=== PATIENT | female | born 1960 | race Caucasian/White ===

== ENCOUNTER 2017-04-23 05:40 | Inpatient (IN) ==
[2017-04-16 09:56] LABS: Basophils % 0.2 % (0.0-0.8); Eosinophils # 0.1 10*3/uL (0.0-0.87); Eosinophils % 1.6 % (0.00-10.9); Hematocrit 38.6 VOL% (35.7-47.0); Hemoglobin 13.1 GM/DL (12.0-16.0); Immature Granulocytes % 0.3 %; Immature Granulocytes Absolute 0.02 #; Lymphocytes # 3.7 10*3/uL (1.4-4.0); Lymphocytes % 60.5 % (21.3-54.2); Mean Corpuscular HGB Conc 33.9 GM/DL (32-36); Mean Corpuscular Hemoglobin 29 PG (27-34); Mean Corpuscular Volume 86.7 FL (87-102); Mean Platelet Volume 10.3 FL (9.6-12.0); Monocytes # 0.4 10*3/uL (0.11-0.8); Monocytes % 6.4 % (1.7-12.7); Neutrophils # 1.9 10*3/uL (1.4-7.4); Platelet Count 303 T/CUMM (130-400); Red Blood Count 4.45 MC/CUMM (3.8-5.5); Red Cell Distribution Width 13.2 % (9.3-17.3); White Blood Count 6.1 T/CUMM (4-12)
[2017-04-16 10:29] LABS: Calcium 8.5 MG/DL (8.5-10.1); Osmolality,Calculated 264.4 MOS/KG (273-304); Potassium 4.3 MMOL/L (3.5-5.1)
[2017-04-16 10:48] LABS: Eosinophils 4 % (0-10); Giant Platelets Few; Hypochromasia 1+; Lymphocytes 67 % (20-55); Ovalocytes Slight; Platelet Estimate Adequate; Segmented Neutrophils 19 % (50-85); Total Cells Counted 100
[2017-04-16 10:49] LABS: Atypical Lymphocytes Few; Microcytosis Slight
[2017-04-23] MEDS ORDERED: ceFAZolin 1,000 MG in SYRINGE 1 EACH IV ONE (06:00)
[2017-04-23] MEDS ORDERED: DIAZEPAM 5 MG TABLET PO ONE (07:16)
[2017-04-23] MEDS ORDERED: PANTOPRAZOLE 40 MG TABLET PO ONE (07:16)
[2017-04-23] MEDS ORDERED: ceFAZolin 1,000 MG VIAL ONE (07:18)
[2017-04-23] MEDS ORDERED: LACTATED RINGERS 1,000 ML IV SCH (07:30)
[2017-04-23] MEDS ORDERED: TISSUE ADHESIVE 1 EACH APPLICATOR TOP ONE (07:57)
[2017-04-23] MEDS ORDERED: BUPIVACAINE 0.25% 50 ML VIAL ONE (07:57)
[2017-04-23] MEDS ORDERED: ONDANSETRON 4 MG/2 ML VIAL IV PRN ×2 (10:01→11:08)
[2017-04-23] MEDS: HYDROmorphone 2 MG/1 ML VIAL IV PRN ×2 (10:05→10:10)
[2017-04-23] MEDS ORDERED: PROPOFOL 200 MG/20 ML VIAL IV ONE (10:19)
[2017-04-23] MEDS ORDERED: SEVOFLURANE 1 UNIT/15 MINUTE INH ONE (10:19)
[2017-04-23] MEDS ORDERED: NEOSTIGMINE 10 MG/10 ML VIAL ONE (10:20)
[2017-04-23] MEDS ORDERED: MIDAZOLAM 2 MG/2 ML VIAL ONE (10:20)
[2017-04-23] MEDS ORDERED: GLYCOPYRROLATE 0.4 MG/2 ML VIAL ONE ×2 (10:20)
[2017-04-23] MEDS ORDERED: ONDANSETRON 4 MG/2 ML VIAL ONE (10:20)
[2017-04-23] MEDS ORDERED: KETOROLAC 30 MG/1 ML VIAL ONE (10:20)
[2017-04-23] MEDS ORDERED: fentaNYL 100 MCG/2 ML VIAL ONE (10:20)
[2017-04-23] MEDS ORDERED: ACETAMINOPHEN 1,000 MG/100 ML VIAL IV ONE (10:20)
[2017-04-23] MEDS ORDERED: ROCURONIUM 100 MG/10 ML VIAL IV ONE (10:21)
[2017-04-23] MEDS ORDERED: MORPHINE 2 MG/1 ML SYRINGE IV PRN (11:08)
[2017-04-23] MEDS ORDERED: NON-FORMULARY MEDICATION (Melatonin [Melatonin] 10 MG) PO PRN (11:08)
[2017-04-23] MEDS ORDERED: DEXTROSE 50% 25 GM/50 ML VIAL IV PRN (11:08)
[2017-04-23] MEDS ORDERED: GLUCAGON 1 MG VIAL IM PRN (11:08)
[2017-04-23] MEDS: INSULIN REGULAR 100 UNIT/ML SUBCUT SCH ×3 (11:58→21:18)
[2017-04-23] MEDS: SODIUM CHLORIDE 0.9% 1,000 ML IV SCH ×2 (15:03→20:57)
[2017-04-23] MEDS ORDERED: SODIUM CHLORIDE 0.9% 500 ML IV ONE (15:55)
[2017-04-23] MEDS: KETOROLAC 15 MG/1 ML VIAL IV PRN (16:07)
[2017-04-23] MEDS: PREGABALIN 75 MG CAPSULE PO SCH (21:18)
[2017-04-23] MEDS: rOPINIRole 1 MG TABLET PO SCH (21:19)
[2017-04-24] MEDS: KETOROLAC 15 MG/1 ML VIAL IV PRN ×3 (00:53→17:00)
[2017-04-24] MEDS: SODIUM CHLORIDE 0.9% 1,000 ML IV SCH ×2 (05:33→15:01)
[2017-04-24] MEDS: ENOXAPARIN 40 MG/0.4 ML SYRINGE SUBCUT SCH (05:34)
[2017-04-24] MEDS ORDERED: LACTATED RINGERS 500 ML IV ONE (05:56)
[2017-04-24 06:35] LABS: Basophils % 0.2 % (0.0-0.8); Eosinophils # 0.2 10*3/uL (0.0-0.87); Eosinophils % 2.4 % (0.00-10.9); Hematocrit 30.1 VOL% (35.7-47.0); Hemoglobin 10.4 GM/DL (12.0-16.0); Immature Granulocytes % 0.2 %; Immature Granulocytes Absolute 0.01 #; Lymphocytes # 3.1 10*3/uL (1.4-4.0); Lymphocytes % 46.4 % (21.3-54.2); Mean Corpuscular HGB Conc 34.6 GM/DL (32-36); Mean Corpuscular Hemoglobin 30 PG (27-34); Mean Corpuscular Volume 87.8 FL (87-102); Mean Platelet Volume 10.7 FL (9.6-12.0); Monocytes # 0.6 10*3/uL (0.11-0.8); Monocytes % 9.2 % (1.7-12.7); Neutrophils # 2.8 10*3/uL (1.4-7.4); Neutrophils % 41.6 % (38.7-73.9); Platelet Count 251 T/CUMM (130-400); Red Blood Count 3.43 MC/CUMM (3.8-5.5); Red Cell Distribution Width 13.7 % (9.3-17.3); White Blood Count 6.6 T/CUMM (4-12)
[2017-04-24 06:53] LABS: Calcium 7.4 MG/DL (8.5-10.1); Osmolality,Calculated 271.4 MOS/KG (273-304); Potassium 3.6 MMOL/L (3.5-5.1)
[2017-04-24] MEDS: INSULIN REGULAR 100 UNIT/ML SUBCUT SCH ×4 (07:39→21:23)
[2017-04-24] MEDS: DULoxetine 30 MG CAPSULE PO SCH (08:33)
[2017-04-24] MEDS: PREGABALIN 75 MG CAPSULE PO SCH ×2 (08:33→21:27)
[2017-04-24] MEDS: PANTOPRAZOLE 40 MG TABLET PO SCH (08:33)
[2017-04-24] MEDS: ASPIRIN EC 81 MG TABLET PO SCH (08:33)
[2017-04-24] MEDS: rOPINIRole 1 MG TABLET PO SCH (21:27)
[2017-04-25] MEDS: ENOXAPARIN 40 MG/0.4 ML SYRINGE SUBCUT SCH (04:25)
[2017-04-25 06:14] LABS: Basophils % 0.2 % (0.0-0.8); Eosinophils # 0.1 10*3/uL (0.0-0.87); Eosinophils % 2.1 % (0.00-10.9); Hematocrit 30.1 VOL% (35.7-47.0); Hemoglobin 10.2 GM/DL (12.0-16.0); Immature Granulocytes % 0.2 %; Immature Granulocytes Absolute 0.01 #; Lymphocytes # 2.3 10*3/uL (1.4-4.0); Lymphocytes % 44.6 % (21.3-54.2); Mean Corpuscular HGB Conc 33.9 GM/DL (32-36); Mean Corpuscular Hemoglobin 30 PG (27-34); Mean Corpuscular Volume 89.9 FL (87-102); Mean Platelet Volume 10.7 FL (9.6-12.0); Monocytes # 0.6 10*3/uL (0.11-0.8); Monocytes % 11.9 % (1.7-12.7); Neutrophils # 2.1 10*3/uL (1.4-7.4); Platelet Count 231 T/CUMM (130-400); Red Blood Count 3.35 MC/CUMM (3.8-5.5); Red Cell Distribution Width 13.9 % (9.3-17.3); White Blood Count 5.1 T/CUMM (4-12)
[2017-04-25 06:46] LABS: Calcium 7.7 MG/DL (8.5-10.1); Osmolality,Calculated 287.8 MOS/KG (273-304)
[2017-04-25 07:39] VITALS: BP 118/73
[2017-04-25] MEDS: PREGABALIN 75 MG CAPSULE PO SCH (08:46)
[2017-04-25] MEDS: DULoxetine 30 MG CAPSULE PO SCH (08:46)
[2017-04-25] MEDS: INSULIN REGULAR 100 UNIT/ML SUBCUT SCH (08:46)
[2017-04-25] MEDS: ASPIRIN EC 81 MG TABLET PO SCH (08:46)
[2017-04-25] MEDS: PANTOPRAZOLE 40 MG TABLET PO SCH (08:46)
== END 2017-04-25 11:05 | disposition home or self-care (01) | DRG 41 ==
LOC: N.OR 05:40 → N.SDSINP 05:43 → N.3E 09:53
PROVIDERS: ADMIT Surgery; ATTEND Surgery

== ENCOUNTER 2020-07-11 13:54 | Inpatient (IN) ==
[2020-07-11] MEDS ORDERED: SODIUM CHLORIDE 0.9% 1,000 ML IV STA ×2 (14:48→15:44)
[2020-07-11 15:03] LABS: Basophils % 0.1 % (0.0-0.8); Eosinophils % 0.4 % (0.00-10.9); Hematocrit 31.9 VOL% (35.7-47.0); Immature Granulocytes % 0.8 %; Immature Granulocytes Absolute 0.08 #; Lymphocytes # 2.2 10*3/uL (1.4-4.0); Mean Corpuscular HGB Conc 31.3 GM/DL (32-36); Mean Corpuscular Volume 85.1 FL (87-102); Mean Platelet Volume 8.7 FL (9.6-12.0); Monocytes % 7.8 % (1.7-12.7); Neutrophils % 69.9 % (38.7-73.9); Platelet Count 592 T/CUMM (130-400); Red Blood Count 3.75 MC/CUMM (3.8-5.5); Red Cell Distribution Width 22.4 % (9.3-17.3); White Blood Count 10.5 T/CUMM (4-12)
[2020-07-11 15:24] LABS: Alanine Aminotransferase < 6 U/L (13-56); Albumin 2.6 G/DL (3.4-5.0); Alkaline Phosphatase 106 U/L (45-117); Aspartate Amino Transferase 12 U/L (0-37); Blood Urea Nitrogen 16 MG/DL (7-18); Calcium 9.1 MG/DL (8.5-10.1); Carbon Dioxide 29 MMOL/L (21-32); Estimated Glom Filtration Rate 25 ML/MIN; Glucose 308 MG/DL (74-106); Osmolality,Calculated 261.6 MOS/KG (273-304); Potassium 3.6 MMOL/L (3.5-5.1); Sodium 124 MMOL/L (136-145); Total Protein 8.8 G/DL (6.4-8.2)
[2020-07-11] MEDS ORDERED: PROMETHAZINE 25 MG/1 ML VIAL IM STA (15:46)
[2020-07-11] MEDS ORDERED: GLUCAGON 1 MG VIAL IM PRN (17:13)
[2020-07-11] MEDS ORDERED: MORPHINE 4 MG/1 ML VIAL IV PRN (17:13)
[2020-07-11] MEDS ORDERED: PROMETHAZINE 25 MG/1 ML VIAL IM PRN (17:13)
[2020-07-11] MEDS ORDERED: ACETAMINOPHEN 325 MG TABLET PO PRN (17:13)
[2020-07-11] MEDS ORDERED: DEXTROSE 50% 25 GM/50 ML VIAL IV PRN (17:13)
[2020-07-11] MEDS: SODIUM CHLORIDE 0.9% 1,000 ML IV SCH (18:30)
[2020-07-11] MEDS: ENOXAPARIN 40 MG/0.4 ML SYRINGE SUBCUT SCH (21:22)
[2020-07-11] MEDS: VENLAFAXINE XR 75 MG CAPSULE PO SCH (21:22)
[2020-07-11] MEDS: TEMAZEPAM 7.5 MG CAPSULE PO SCH (21:22)
[2020-07-11] MEDS: DIVALPROEX 250 MG TABLET PO SCH (21:22)
[2020-07-11] MEDS: SIMVASTATIN 40 MG TABLET PO SCH (21:22)
[2020-07-11] MEDS: INSULIN REGULAR 100 UNIT/ML SUBCUT SCH (21:23)
[2020-07-11 22:39] LABS: Bacteria,Urine Many /HPF (Few); Bilirubin,Urine Negative (Negative); Blood, Urine Moderate mg/dL (Negative); Glucose,Urine (UA) >=500 mg/dL (Negative); Ketones,Urine 20 mg/dL (Negative); Mucus,Urine Occasional /LPF (Occasional); Nitrite,Urine Negative (Negative); Protein,Urine 30 MG/DL; RBC,Urine 12 /HPF (0-4); Squamous Epithelial Cell,Urine Occasional /HPF (0-10); Urine Appearance Slightly Hazy (Clear); Urine Color Yellow (Yellow); Urine Specific Gravity 1.003 (1.001-1.035); Urine Urobilinogen < 2.0 EU/DL (0.2-1.0); WBC,Urine 155 /HPF (0-6)
[2020-07-12] MEDS: SODIUM CHLORIDE 0.9% 1,000 ML IV SCH ×4 (00:48→22:05)
[2020-07-12 05:18] LABS: Basophils % 0.1 % (0.0-0.8); Eosinophils # 0.1 10*3/uL (0.0-0.87); Eosinophils % 0.6 % (0.00-10.9); Hematocrit 26.8 VOL% (35.7-47.0); Hemoglobin 8.5 GM/DL (12.0-16.0); Immature Granulocytes % 0.6 %; Immature Granulocytes Absolute 0.05 #; Lymphocytes # 1.2 10*3/uL (1.4-4.0); Lymphocytes % 13.9 % (21.3-54.2); Mean Corpuscular HGB Conc 31.7 GM/DL (32-36); Mean Corpuscular Volume 85.4 FL (87-102); Mean Platelet Volume 8.8 FL (9.6-12.0); Monocytes % 7.4 % (1.7-12.7); Neutrophils % 77.4 % (38.7-73.9); Platelet Count 481 T/CUMM (130-400); Red Blood Count 3.14 MC/CUMM (3.8-5.5); Red Cell Distribution Width 22.2 % (9.3-17.3); White Blood Count 8.5 T/CUMM (4-12)
[2020-07-12 05:35] LABS: Alanine Aminotransferase < 6 U/L (13-56); Albumin 2.1 G/DL (3.4-5.0); Alkaline Phosphatase 81 U/L (45-117); Aspartate Amino Transferase 10 U/L (0-37); Blood Urea Nitrogen 12 MG/DL (7-18); Carbon Dioxide 26 MMOL/L (21-32); Estimated Glom Filtration Rate 39 ML/MIN; HDL Cholesterol 55 MG/DL (40-60); Osmolality,Calculated 268.8 MOS/KG (273-304); Risk Ratio 2.18; Sodium 137 MMOL/L (136-145); Total Protein 7.1 G/DL (6.4-8.2); Triglycerides 134 MG/DL (2-150); VLDL CHOLESTEROL 26.8 MG/DL
[2020-07-12 05:39] LABS: Hypochromasia 1+; Microcytosis 1+; Platelet Estimate Adequate
[2020-07-12 05:42] LABS: Glucose 26 MG/DL (74-106)
[2020-07-12] MEDS ORDERED: LEVOTHYROXINE 75 MCG TABLET PO SCH (06:00)
[2020-07-12] MEDS ORDERED: VENLAFAXINE XR 75 MG CAPSULE PO SCH (08:00)
[2020-07-12] MEDS: INSULIN REGULAR 100 UNIT/ML SUBCUT SCH (08:39)
[2020-07-12] MEDS: ASPIRIN EC 81 MG TABLET PO SCH (08:40)
[2020-07-12] MEDS: PANTOPRAZOLE 40 MG TABLET PO SCH (08:40)
[2020-07-12] MEDS: MIDODRINE 2.5 MG TABLET PO SCH ×3 (08:40→17:32)
[2020-07-12] MEDS: DIVALPROEX 250 MG TABLET PO SCH ×2 (08:40→20:58)
[2020-07-12] MEDS: ONDANSETRON 4 MG/2 ML VIAL IV PRN ×3 (08:40→19:00)
[2020-07-12] MEDS: POTASSIUM CHLORIDE 20 MEQ TABLET PO PRN ×4 (08:40→15:22)
[2020-07-12] MEDS: VENLAFAXINE XR 75 MG CAPSULE PO SCH ×2 (08:47→20:57)
[2020-07-12] MEDS: LACTOBACILLUS ACIDOPHILUS/BULGARICUS CAPLET PO SCH ×2 (08:47→20:58)
[2020-07-12] MEDS ORDERED: PNEUMOCOCCAL VACCINE (23 VALENT) 0.5 ML VIAL IM ONE (09:00)
[2020-07-12] MEDS: INSULIN GLARGINE 100 UNIT/ML SUBCUT SCH (11:39)
[2020-07-12] MEDS: INSULIN LISPRO 100 UNIT/ML SUBCUT SCH ×3 (11:39→21:02)
[2020-07-12] MEDS: MENTHOL/ZINC OXIDE OINT 71 GM JAR TOP SCH ×2 (17:32→20:59)
[2020-07-12] MEDS: TEMAZEPAM 7.5 MG CAPSULE PO SCH (20:58)
[2020-07-12] MEDS: SIMVASTATIN 40 MG TABLET PO SCH (20:58)
[2020-07-12] MEDS: ENOXAPARIN 40 MG/0.4 ML SYRINGE SUBCUT SCH (20:58)
[2020-07-13] MEDS: SODIUM CHLORIDE 0.9% 1,000 ML IV SCH ×3 (04:56→17:03)
[2020-07-13] MEDS: ONDANSETRON 4 MG/2 ML VIAL IV PRN ×4 (04:56→20:20)
[2020-07-13 05:34] LABS: Basophils % 0.3 % (0.0-0.8); Eosinophils # 0.1 10*3/uL (0.0-0.87); Eosinophils % 1.3 % (0.00-10.9); Hematocrit 25.5 VOL% (35.7-47.0); Hemoglobin 7.9 GM/DL (12.0-16.0); Immature Granulocytes % 0.5 %; Immature Granulocytes Absolute 0.04 #; Lymphocytes # 1.9 10*3/uL (1.4-4.0); Lymphocytes % 23.8 % (21.3-54.2); Mean Corpuscular Volume 89.2 FL (87-102); Mean Platelet Volume 8.8 FL (9.6-12.0); Neutrophils % 65.1 % (38.7-73.9); Platelet Count 440 T/CUMM (130-400); Red Blood Count 2.86 MC/CUMM (3.8-5.5); Red Cell Distribution Width 22.5 % (9.3-17.3); White Blood Count 7.8 T/CUMM (4-12)
[2020-07-13] MEDS: LEVOTHYROXINE 88 MCG TABLET PO SCH (05:43)
[2020-07-13 05:59] LABS: Calcium 8.1 MG/DL (8.5-10.1); Osmolality,Calculated 280.8 MOS/KG (273-304); Potassium 4.3 MMOL/L (3.5-5.1)
[2020-07-13 06:03] LABS: Hypochromasia 2+; Microcytosis 1+; Platelet Estimate Adequate
[2020-07-13] MEDS: ASPIRIN EC 81 MG TABLET PO SCH (08:03)
[2020-07-13] MEDS: MIDODRINE 2.5 MG TABLET PO SCH ×3 (08:04→17:03)
[2020-07-13] MEDS: VENLAFAXINE XR 75 MG CAPSULE PO SCH ×2 (08:04→23:32)
[2020-07-13] MEDS: DIVALPROEX 250 MG TABLET PO SCH ×2 (08:04→23:33)
[2020-07-13] MEDS: LACTOBACILLUS ACIDOPHILUS/BULGARICUS CAPLET PO SCH ×2 (08:04→23:58)
[2020-07-13] MEDS: PANTOPRAZOLE 40 MG TABLET PO SCH (08:04)
[2020-07-13] MEDS: INSULIN LISPRO 100 UNIT/ML SUBCUT SCH ×4 (08:05→23:58)
[2020-07-13] MEDS: MENTHOL/ZINC OXIDE OINT 71 GM JAR TOP SCH ×2 (08:06→23:58)
[2020-07-13] MEDS: INSULIN GLARGINE 100 UNIT/ML SUBCUT SCH (08:06)
[2020-07-13] MEDS ORDERED: MAGNESIUM SULF RIDER 4 GM in PREMIX 1 EACH IV ONE (09:00)
[2020-07-13] MEDS ORDERED: SODIUM CHLORIDE 0.9% 1,000 ML IV PRN (13:51)
[2020-07-13] MEDS: MEGESTROL 40 MG TABLET PO SCH (17:03)
[2020-07-13] MEDS: SIMVASTATIN 40 MG TABLET PO SCH (23:33)
[2020-07-14] MEDS: SODIUM CHLORIDE 0.9% 1,000 ML IV SCH ×3 (05:07→17:53)
[2020-07-14 08:03] LABS: Basophils % 0.3 % (0.0-0.8); Eosinophils # 0.1 10*3/uL (0.0-0.87); Eosinophils % 1.5 % (0.00-10.9); Hematocrit 33.1 VOL% (35.7-47.0); Hemoglobin 11.2 GM/DL (12.0-16.0); Immature Granulocytes % 0.5 %; Immature Granulocytes Absolute 0.05 #; Lymphocytes # 1.8 10*3/uL (1.4-4.0); Lymphocytes % 18.7 % (21.3-54.2); Mean Corpuscular HGB Conc 33.8 GM/DL (32-36); Mean Corpuscular Volume 84.7 FL (87-102); Mean Platelet Volume 8.6 FL (9.6-12.0); Monocytes % 6.7 % (1.7-12.7); Neutrophils % 72.3 % (38.7-73.9); Platelet Count 416 T/CUMM (130-400); Red Blood Count 3.91 MC/CUMM (3.8-5.5); Red Cell Distribution Width 20.5 % (9.3-17.3); White Blood Count 9.6 T/CUMM (4-12)
[2020-07-14 08:34] LABS: Calcium 8.1 MG/DL (8.5-10.1); Osmolality,Calculated 274.2 MOS/KG (273-304); Potassium 4.3 MMOL/L (3.5-5.1)
[2020-07-14 08:35] LABS: % Iron Saturation 23.3 % (18-50)
[2020-07-14 08:36] LABS: Folate 9.39 NG/ML (5.38-24.0)
[2020-07-14] MEDS ORDERED: INSULIN GLARGINE 100 UNIT/ML SUBCUT SCH (09:00)
[2020-07-14] MEDS: MEGESTROL 40 MG TABLET PO SCH (09:32)
[2020-07-14] MEDS: LEVOTHYROXINE 88 MCG TABLET PO SCH (09:32)
[2020-07-14] MEDS: DIVALPROEX 250 MG TABLET PO SCH ×2 (09:32→21:57)
[2020-07-14] MEDS: ASPIRIN EC 81 MG TABLET PO SCH (09:32)
[2020-07-14] MEDS: PANTOPRAZOLE 40 MG TABLET PO SCH (09:33)
[2020-07-14] MEDS: LACTOBACILLUS ACIDOPHILUS/BULGARICUS CAPLET PO SCH ×2 (09:33→21:57)
[2020-07-14] MEDS: VENLAFAXINE XR 75 MG CAPSULE PO SCH ×2 (09:33→21:57)
[2020-07-14] MEDS: ONDANSETRON 4 MG/2 ML VIAL IV PRN (09:34)
[2020-07-14] MEDS: MIDODRINE 2.5 MG TABLET PO SCH ×3 (09:36→15:32)
[2020-07-14] MEDS: MENTHOL/ZINC OXIDE OINT 71 GM JAR TOP SCH ×2 (09:37→21:58)
[2020-07-14] MEDS: INSULIN LISPRO 100 UNIT/ML SUBCUT SCH ×4 (09:37→22:19)
[2020-07-14] MEDS ORDERED: MULTIVITAMIN (OCUVITE) TABLET PO SCH (11:30)
[2020-07-14] MEDS: MULTIVITAMIN (BEROCCA) TABLET PO SCH (11:32)
[2020-07-14] MEDS: ENOXAPARIN 40 MG/0.4 ML SYRINGE SUBCUT SCH ×2 (21:58)
[2020-07-14] MEDS: SIMVASTATIN 40 MG TABLET PO SCH (22:20)
[2020-07-15 06:05] LABS: Basophils % 0.3 % (0.0-0.8); Eosinophils # 0.2 10*3/uL (0.0-0.87); Eosinophils % 2.1 % (0.00-10.9); Hematocrit 33.7 VOL% (35.7-47.0); Hemoglobin 11.1 GM/DL (12.0-16.0); Immature Granulocytes % 0.4 %; Immature Granulocytes Absolute 0.03 #; Lymphocytes % 24.9 % (21.3-54.2); Mean Corpuscular HGB Conc 32.9 GM/DL (32-36); Mean Platelet Volume 9.1 FL (9.6-12.0); Monocytes % 8.7 % (1.7-12.7); Neutrophils % 63.6 % (38.7-73.9); Platelet Count 394 T/CUMM (130-400); Red Blood Count 3.92 MC/CUMM (3.8-5.5); Red Cell Distribution Width 20.9 % (9.3-17.3); White Blood Count 7.9 T/CUMM (4-12)
[2020-07-15] MEDS: LEVOTHYROXINE 88 MCG TABLET PO SCH (06:05)
[2020-07-15 06:32] LABS: Calcium 8.4 MG/DL (8.5-10.1); Osmolality,Calculated 276.8 MOS/KG (273-304); Potassium 4.3 MMOL/L (3.5-5.1)
[2020-07-15] MEDS: INSULIN GLARGINE 100 UNIT/ML SUBCUT SCH (08:49)
[2020-07-15] MEDS: INSULIN LISPRO 100 UNIT/ML SUBCUT SCH ×4 (08:50→23:44)
[2020-07-15] MEDS: PANTOPRAZOLE 40 MG TABLET PO SCH (08:50)
[2020-07-15] MEDS: MIDODRINE 2.5 MG TABLET PO SCH ×3 (08:50→16:12)
[2020-07-15] MEDS: VENLAFAXINE XR 75 MG CAPSULE PO SCH ×2 (08:51→21:33)
[2020-07-15] MEDS: SODIUM CHLORIDE 0.9% 1,000 ML IV SCH (08:51)
[2020-07-15] MEDS: ASPIRIN EC 81 MG TABLET PO SCH (08:51)
[2020-07-15] MEDS: LACTOBACILLUS ACIDOPHILUS/BULGARICUS CAPLET PO SCH ×2 (08:51→21:33)
[2020-07-15] MEDS: DIVALPROEX 250 MG TABLET PO SCH ×2 (08:51→21:34)
[2020-07-15] MEDS: FERROUS GLUCONATE 240 MG TABLET PO SCH (08:51)
[2020-07-15] MEDS: MULTIVITAMIN (BEROCCA) TABLET PO SCH (08:51)
[2020-07-15] MEDS: MENTHOL/ZINC OXIDE OINT 71 GM JAR TOP SCH ×2 (08:52→21:34)
[2020-07-15] MEDS: SIMVASTATIN 40 MG TABLET PO SCH (21:33)
[2020-07-15] MEDS: ENOXAPARIN 40 MG/0.4 ML SYRINGE SUBCUT SCH (21:34)
[2020-07-16] MEDS: SODIUM CHLORIDE 0.9% 1,000 ML IV SCH ×2 (05:45→13:50)
[2020-07-16 06:01] LABS: Basophils % 0.3 % (0.0-0.8); Eosinophils # 0.2 10*3/uL (0.0-0.87); Eosinophils % 2.4 % (0.00-10.9); Hematocrit 32.6 VOL% (35.7-47.0); Hemoglobin 10.8 GM/DL (12.0-16.0); Immature Granulocytes % 0.1 %; Immature Granulocytes Absolute 0.01 #; Lymphocytes # 2.1 10*3/uL (1.4-4.0); Lymphocytes % 28.8 % (21.3-54.2); Mean Corpuscular HGB Conc 33.1 GM/DL (32-36); Mean Corpuscular Volume 86.2 FL (87-102); Mean Platelet Volume 8.8 FL (9.6-12.0); Monocytes % 9.6 % (1.7-12.7); Neutrophils % 58.8 % (38.7-73.9); Platelet Count 414 T/CUMM (130-400); Red Blood Count 3.78 MC/CUMM (3.8-5.5); Red Cell Distribution Width 21.2 % (9.3-17.3); White Blood Count 7.4 T/CUMM (4-12)
[2020-07-16 06:31] LABS: Calcium 8.3 MG/DL (8.5-10.1); Osmolality,Calculated 267.2 MOS/KG (273-304); Potassium 3.8 MMOL/L (3.5-5.1)
[2020-07-16] MEDS: INSULIN LISPRO 100 UNIT/ML SUBCUT SCH ×2 (08:07→12:36)
[2020-07-16] MEDS: ASPIRIN EC 81 MG TABLET PO SCH (08:08)
[2020-07-16] MEDS: MIDODRINE 2.5 MG TABLET PO SCH ×2 (08:08→12:36)
[2020-07-16] MEDS: FERROUS GLUCONATE 240 MG TABLET PO SCH (08:08)
[2020-07-16] MEDS: VENLAFAXINE XR 75 MG CAPSULE PO SCH (08:08)
[2020-07-16] MEDS: LACTOBACILLUS ACIDOPHILUS/BULGARICUS CAPLET PO SCH (08:08)
[2020-07-16] MEDS: PANTOPRAZOLE 40 MG TABLET PO SCH (08:08)
[2020-07-16] MEDS: MULTIVITAMIN (BEROCCA) TABLET PO SCH (08:08)
[2020-07-16] MEDS: INSULIN GLARGINE 100 UNIT/ML SUBCUT SCH (08:08)
[2020-07-16] MEDS: DIVALPROEX 250 MG TABLET PO SCH (08:08)
[2020-07-16] MEDS: LEVOTHYROXINE 88 MCG TABLET PO SCH (08:08)
[2020-07-16] MEDS: MENTHOL/ZINC OXIDE OINT 71 GM JAR TOP SCH (08:09)
[2020-07-16 13:05] VITALS: BP 160/71
== END 2020-07-16 14:16 | disposition home health service (06) | DRG 74 ==
LOC: N.ED 13:54 → N.EDINP 17:10 → N.5E 18:26
PROVIDERS: ADMIT Internal Medicine; ATTEND Internal Medicine